=== PATIENT | male | born 1985 | race American Indian/Alaskan Native ===

== ENCOUNTER 2018-06-16 00:51 | Emergency (ER) | payer OTHER ==
[2018-06-16 01:34] VITALS: BP 114/73; PULSE 74; RESP 18; TEMP 98; O2SAT 100
[2018-06-16] MEDS ORDERED: cefTRIAXone (Rocephin) 250 mg Inj IM ONE (02:57)
[2018-06-16 05:21] LABS: URINE BILIRUBIN NEGATIVE (NEGATIVE); URINE CLARITY Clear (Clear); URINE COLOR YELLOW (YELLOW); URINE GLUCOSE (UA) NEGATIVE (NEGATIVE)
[2018-06-16 05:22] LABS: URINE BLOOD NEGATIVE (NEGATIVE); URINE LEUKOCYTE ESTERASE NEGATIVE Leu/uL (Negative); URINE PROTEIN NEGATIVE (NEGATIVE); URINE UROBILINOGEN 0.2 mg/dL (0.2-1.0)
--- NOTE | 2018-06-16 05:46 | ED PDOC ---
HPI: Male Pain Time Seen by Provider: 06/16/18 02:00 Chief Complaint (Nursing): Groin Pain Chief Complaint (Provider): Genitourinary problem History Per: Patient History/Exam Limitations: no limitations Onset/Duration Of Symptoms: Hrs (9), Other (x1 week) Current Symptoms Are (Timing): Still Present Additional Complaint(s): 33 year old male presents, with a history of HIV, presents to the ED stating he had protected intercourse 1 week ago with his male partner. Since 20:00 last night, patient noticed penile discharge which he described as white and yellow in color. He denies groin or testicular pain but complains of irritation when he urinates. PMD: Dawit Robles V Past Medical History Reviewed: Historical Data, Nursing Documentation, Vital Signs Vital Signs: Last Vital Signs Temp 98 F 06/16/18 01:33 Pulse 74 06/16/18 01:33 Resp 18 06/16/18 01:33 BP 114/73 06/16/18 01:33 Pulse Ox 100 06/16/18 01:33 - Medical History PMH: HIV - Surgical History Surgical History: No Surg Hx - Family History Family History: States: Unknown Family Hx - Allergies Allergies/Adverse Reactions: Allergies Allergy/AdvReac Type Severity Reaction Status Date / Time No Known Allergies Allergy Verified 06/16/18 01:34 Review of Systems ROS Statement: Except As Marked, All Systems Reviewed And Found Negative Genitourinary Male: Positive for: Penile Discharge (Yellow and white color), Other (Irritation during urination; no groin or testicular pain) Physical Exam - Reviewed Nursing Documentation Reviewed: Yes Vital Signs Reviewed: Yes - Physical Exam Appears: Positive for: No Acute Distress Head Exam: Positive for: ATRAUMATIC, NORMOCEPHALIC Skin: Positive for: Normal Color, Warm, Dry Eye Exam: Positive for: Normal appearance Neck: Positive for: Normal, Painless ROM Male Genital Exam: Positive for: urethral discharge (White yellowish discharge), other (Penis is nontender; no ulcers; no tenderness of groin or lymphnodes) Extremity: Positive for: Normal ROM Neurological/Psych: Positive for: Awake, Alert, Normal Tone Comments: Dog Or Animal Sitter: Azalea Christian - Laboratory Results Lab Results: Urine Color Yellow (YELLOW) 06/16/18 03:10 Urine Clarity Clear (Clear) 06/16/18 03:10 Urine pH 7.0 (5.0-8.0) 06/16/18 03:10 Ur Specific [place] 1.009 (1.003-1.030) 06/16/18 03:10 Urine Protein Negative mg/dL (NEGATIVE) 06/16/18 03:10 Urine Glucose (UA) Negative mg/dL (NEGATIVE) 06/16/18 03:10 Urine Ketones Negative mg/dL (NEGATIVE) 06/16/18 03:10 Urine Blood Negative (NEGATIVE) 06/16/18 03:10 Urine Nitrate Negative (NEGATIVE) 06/16/18 03:10 Urine Bilirubin Negative (NEGATIVE) 06/16/18 03:10 Urine Urobilinogen 0.2 mg/dL (0.2-1.0) 06/16/18 03:10 Ur Leukocyte Esterase Negative Jose/uL (Negative) 06/16/18 03:10 Urine RBC (Auto) < 1 /hpf (0-3) 06/16/18 03:10 Urine Microscopic WBC < 1 /hpf (0-5) 06/16/18 03:10 - ECG O2 Sat by Pulse Oximetry: 100 (RA) Pulse Ox Interpretation: Normal Medical Decision Making Medical Decision Making: Initial Impression: Likely exposure to STD. Initial Plan: --Chlamydia stat --Rocephin 250mg IM --Zithromax 2000mg PO --Urinalysis Will empirically treat. Encouraged safe sex habits in the future. Scribe Attestation: Documented by James Tnag acting as a scribe for Allan De Jesus MD. Provider Scribe Attestation: All medical record entries made by the Scribe were at my direction and personally dictated by me. I have reviewed the chart and agree that the record accurately reflects my personal performance of the history, physical exam, medical decision making, and the department course for this patient. I have also personally directed, reviewed, and agree with the discharge instructions and disposition. Disposition - Clinical Impression Clinical Impression: Urethral discharge - Disposition Referrals: Dawit Wiseman APN [Family Provider] - Disposition: Routine/Home Disposition Time: 05:00 Condition: IMPROVED Instructions: Chlamydia and Gonorrhea, Screening for Sexually Transmitted Infections, STD Prevention Forms: [facility] (Romans[facility])
== END 2018-06-16 05:55 | disposition home or self-care (01) ==
LOC: H.ER 00:51
DX: R36.0 Urethral discharge without blood (principal); Z21 Asymptomatic human immunodeficiency virus [HIV] infection status
CPT/HCPCS: 81003; 87491; 87591; 96372; 99281; J0696